=== PATIENT | male | born 1940 | race Caucasian/White ===

== ENCOUNTER → 2023-07-26 09:18 | Outpatient (REF) | payer MEDICARE, SELFPAY | LOC: MRI 3T 09:18 | PROVIDERS: ATTENDING PHYSICIAN Physician Assistant; FAMILY PHYSICIAN Family Medicine | DX: M54.16 Radiculopathy, lumbar region (principal) | CPT/HCPCS: 72148 ==

== ENCOUNTER → 2023-09-12 10:17 | Outpatient (REF) | payer MEDICARE, SELFPAY ==
[2023-09-12 12:48] LABS: TSH Reflex To Free T4 3.93 uIU/ml (0.47-4.68)
== END ==
LOC: HWLAB 10:17
PROVIDERS: ATTENDING PHYSICIAN Internal Medicine Cardiovascular Disease; FAMILY PHYSICIAN Family Medicine
DX: R53.83 Other fatigue (principal)
CPT/HCPCS: 36415; 84443

== ENCOUNTER → 2023-09-16 13:57 | Outpatient (REF) | payer MEDICARE, SELFPAY | LOC: HWRAD 13:57 | PROVIDERS: ATTENDING PHYSICIAN Internal Medicine Hematology & Oncology; FAMILY PHYSICIAN Family Medicine | DX: C91.10 Chronic lymphocytic leukemia of B-cell type not having achieved remission (principal); D51.9 Vitamin B12 deficiency anemia, unspecified | CPT/HCPCS: 74177; Q9967 ==

== ENCOUNTER → 2024-03-09 12:32 | Outpatient (REF) | payer MEDICARE, SELFPAY | LOC: HWRCS 12:32 | PROVIDERS: ATTENDING PHYSICIAN Internal Medicine Cardiovascular Disease; FAMILY PHYSICIAN Family Medicine | DX: I42.8 Other cardiomyopathies (principal) | CPT/HCPCS: 93306 ==